=== PATIENT | female | born 1980 | race Hispanic/Latino ===

== ENCOUNTER 2022-06-17 23:22 | Emergency (ER) | payer BC ==
[2022-06-18] MEDS ORDERED: DIPHENHYDRAMINE 50 MG/ML VIAL ONE (00:04)
[2022-06-18] MEDS ORDERED: FAMOTIDINE 20 MG/2 ML VIAL IV ONE (00:04)
[2022-06-18] MEDS ORDERED: METHYLPREDNISOLONE 125 MG INJ ONE (00:04)
--- NOTE | 2022-06-18 00:28 | EDPHYS ---
Physician Documentation [facility] Name: Jessy Thompson Age: 41 yrs Sex: Female : 1980 Arrival Date: 06/17/2022 Time: 23:25 Bed 13 Private MD: ED Physician Pardeep Sandoval HPI: 06/17 23:31 This 41 yrs old Female presents to ER via Unassigned with complaints of sp4 Allergic Reaction. 23:31 41-year-old female presents with complaint of a left-sided throat discomfort after sp4 eating seafood about 1 hour ago. 20 minutes ago patient took [id number] Benadryl tablet with some improvement. Patient has history of severe allergy to penicillin that in the past was treated with EpiPen. Patient states she is out of town and does not have her EpiPen with her. At this time there is no trouble speaking and no hoarseness. Historical: - Allergies: 06/18 00:22 PENICILLINS; sp4 - Home Meds: 00:22 EpiPen 0.3 mg/0.3 mL injection Auto-Injector 0.3 mL once for anaphylaxis [Active]; sp4 - Social history:: Smoking status: Patient denies any tobacco usage or history of. Patient/guardian denies using alcohol, street drugs, IV drugs, caffeine, over the counter diet medications, tobacco products. - Family history:: not pertinent. ROS: 00:22 Constitutional: Negative for fever, chills, and weight loss, Eyes: Negative for injury, sp4 pain, redness, and discharge, ENT: Negative for injury, pain, and discharge, positive for left throat discomfort Neck: Negative for injury, pain, and swelling, Cardiovascular: Negative for chest pain, palpitations, and edema, Respiratory: Negative for shortness of breath, cough, wheezing, and pleuritic chest pain, Abdomen/GI: Negative for abdominal pain, nausea, vomiting, diarrhea, and constipation, Back: Negative for injury and pain, MS/Extremity: Negative for injury and deformity, Skin: Negative for injury, rash, and discoloration, Neuro: Negative for headache, weakness, numbness, tingling, and seizure, Psych: Negative for depression, anxiety, suicide ideation, homicidal ideation, and hallucinations, Allergy/Immunology: Negative for hives, rash, and allergies, Endocrine: Negative for neck swelling, polydipsia, polyuria, polyphagia, and marked weight changes, Hematologic/Lymphatic: Negative for swollen nodes, abnormal bleeding, and unusual bruising. Exam: 00:22 Constitutional: This is a well developed, well nourished patient who is awake, alert, sp4 and in no acute distress. Head/Face: Normocephalic, atraumatic. Eyes: Pupils equal round and reactive to light, extra-ocular motions intact. Lids and lashes normal. Conjunctiva and sclera are non-icteric and not injected. Cornea within normal limits. Periorbital areas with no swelling, redness, or edema. ENT: Nares patent. No nasal discharge, no septal abnormalities noted. Tympanic membranes are normal and external auditory canals are clear. Oropharynx with no redness, swelling, or masses, exudates, or evidence of obstruction, uvula midline. Mucous membranes moist. Neck: Trachea midline, no thyromegaly or masses palpated, and no cervical lymphadenopathy. Supple, full range of motion without nuchal rigidity, or vertebral point tenderness. No Meningismus. Chest/axilla: Normal chest wall appearance and motion. Nontender with no deformity. No lesions are appreciated. Cardiovascular: Regular rate and rhythm with a normal S1 and S2. No gallops, murmurs, or rubs. Normal PMI, no JVD. No pulse deficits. Respiratory: Lungs have equal breath sounds bilaterally, clear to auscultation and percussion. No rales, rhonchi or wheezes noted. No increased work of breathing, no retractions or nasal flaring. Abdomen/GI: Soft, non-tender, with normal bowel sounds. No distension or tympany. No guarding or rebound. No evidence of tenderness throughout. Back: No spinal tenderness. No costovertebral tenderness. Full range of motion. Skin: Warm, dry with normal turgor. Normal color with no rashes, no lesions, and no evidence of cellulitis. MS/ Extremity: Pulses equal, no cyanosis. Neurovascular intact. Full, normal range of motion. Neuro: Awake and alert, GCS 15, oriented to person, place, time, and situation. Cranial nerves II-XII grossly intact. Motor strength 5/5 in all extremities. Sensory grossly intact. Cerebellar exam normal. Normal gait. Psych: Awake, alert, with orientation to person, place and time. Behavior, mood, and affect are within normal limits. MDM: 06/17 23:52 Patient medically screened. sp4 06/18 00:22 Differential diagnosis: anaphylaxis, angioedema, bronchospasm, urticaria. Data sp4 reviewed: vital signs, nurses notes. ED course: Patient states she has improved after IV Solu-Medrol Benadryl and Pepcid, patient will be prescribed her EpiPen, will advise Benadryl 25 mg p.o. every 8 hours as needed for throat discomfort. 06/17 23:32 Order name: Saline Lock; Complete Time: 00:12 sp4 Administered Medications: 00:09 Drug: Famotidine IVP 20 mg Route: IVP; Site: right antecubital; jb4 00:10 Drug: diphenhydrAMINE IVP 25 mg Route: IVP; Site: right antecubital; jb4 00:11 Not Given (Other Intervention Used): MethylPREDNISolone Sodium Succinate IM 125 mg IM jb4 once 00:11 Drug: MethylPrednisoLONE IVP 125 mg Route: IVP; Site: right antecubital; jb4 Disposition Summary: 06/18/22 00:27 Discharge Ordered Location: Home sp4 Problem: new sp4 Symptoms: have improved sp4 Condition: Stable sp4 Diagnosis - Acute allergic reaction, acute throat discomfort sp4 Followup: sp4 - With: Private Physician - When: 7 - 10 days - Reason: Re-evaluation by your physician Forms: - Medication Reconciliation Form sp4 - Thank You Letter sp4 - Antibiotic Education sp4 - Prescription Opioid Use sp4 Signatures: Elpidio Yanez RN RN jb4 Pardeep Sandoval MD MD sp4
[2022-06-18 07:33] VITALS: BP 153/93; TEMP 98.1; O2SAT 98
== END 2022-06-18 00:53 | disposition home or self-care (01) ==
LOC: ER 23:22
DX: R07.0 Pain in throat (principal); Z88.0 Allergy status to penicillin
CPT/HCPCS: J1200; J2930